=== PATIENT | male | born 1990 | race Caucasian/White ===

== ENCOUNTER 2016-07-30 01:23 | Emergency (ER) | payer OTHER ==
[2016-07-30 01:57] VITALS: TEMP 98.4; BMI 25.1
--- NOTE | 2016-07-30 03:32 | PDOC ---
History of Present Illness - General Chief Complaint: Palpitations Stated Complaint: HEART RACING Time Seen by Provider: 07/30/16 03:17 History Source: Patient Exam Limitations: No Limitations - History of Present Illness Presenting Symptoms: Chest Pain Timing/Duration: reports: intermittent (x4d) Past History - Travel Traveled outside of the country in the last 30 days: No Close contact w/someone who was outside of country & ill: No - Past Medical History Allergies/Adverse Reactions: Allergies Allergy/AdvReac Type Severity Reaction Status Date / Time No Known Allergies Allergy Verified 10/19/15 21:24 Home Medications: Ambulatory Orders NK [No Known Home Medication] 10/19/15 - Psycho/Social/Smoking Cessation Hx Anxiety: No Suicidal Ideation: No Smoking Status: Yes Smoking History: Current every day smoker Have you smoked in the past 12 months: Yes Number of Cigarettes Smoked Daily: 10 Information on smoking cessation initiated: No 'Breaking Loose' booklet given: 10/19/15 Hx Alcohol Use: Yes (SOCIAL) Drug/Substance Use Hx: No Substance Use Type: Alcohol Review of Systems - Review of Systems Able to Perform ROS?: Yes Comments:: 07/30/16 03:31 CONSTITUTIONAL: Absent: fever, chills, diaphoresis, generalized weakness, malaise, loss of appetite HEENT: Absent: rhinorrhea, nasal congestion, throat pain, throat swelling, difficulty swallowing, mouth swelling, ear pain, eye pain, visual Changes CARDIOVASCULAR: +CP Absent: loss of consciousness, palpitations, irregular heart rate, peripheral edema RESPIRATORY: Absent: cough, shortness of breath, dyspnea with exertion, orthopnea, wheezing, stridor, hemoptysis GASTROINTESTINAL: Absent: abdominal pain, abdominal distension, nausea, vomiting, diarrhea, constipation, melena, hematochezia GENITOURINARY: Absent: dysuria, frequency, urgency, hesitancy, hematuria, flank pain, genital pain MUSCULOSKELETAL: Absent: myalgia, arthralgia, joint swelling SKIN: Absent: rash, itching, pallor HEMATOLOGIC/IMMUNOLOGIC: Absent: easy bleeding, easy bruising, lymphadenopathy, frequent infections ENDOCRINE: Absent: unexplained weight gain, unexplained weight loss, heat intolerance, cold intolerance NEUROLOGIC: Absent: headache, focal weakness or paresthesias, dizziness, unsteady gait, seizure, mental status changes, bladder or bowel incontinence PSYCHIATRIC: Absent: anxiety, depression, suicidal or homicidal ideation, hallucinations. Is the patient limited [place] proficient: No *Physical Exam - Vital Signs Last Vital Signs Temp Pulse Resp BP Pulse Ox 98.4 F 92 H 22 148/80 99 07/30/16 01:53 07/30/16 01:53 07/30/16 01:53 07/30/16 01:53 07/30/16 01:53 - Physical Exam Comments: 07/30/16 03:32 GENERAL: Well developed, well nourished. Awake and alert. No acute distress. HEENT: Normocephalic, atraumatic. PERRLA, EOMI. No conjunctival pallor. Sclera are non- icteric. Moist mucous membranes. Oropharynx is clear. NECK: Supple. Full ROM. No JVD. Carotid pulses 2+ and symmetric, without bruits. No thyromegaly. No lymphadenopathy. CARDIOVASCULAR: Regular rate and rhythm. No murmurs, rubs, or gallops. Distal pulses are 2+ and symmetric. PULMONARY: No evidence of respiratory distress. Lungs clear to auscultation bilaterally. No wheezing, rales or rhonchi. ABDOMINAL: Soft. Non-tender. Non-distended. No rebound or guarding. No organomegaly. Normoactive bowel sounds. MUSCULOSKELETAL Normal range of motion at all joints. No bony deformities or tenderness. No CVA tenderness. EXTREMITIES: No cyanosis. No clubbing. No edema. No calf tenderness. SKIN: Warm and dry. Normal capillary refill. No rashes. No jaundice. NEUROLOGICAL: Alert, awake, appropriate. Cranial nerves 2-12 intact. No deficits to light touch and temperature in face, upper extremities and lower extremities. No motor deficits in the in face, upper extremities and lower extremities. Normoreflexic in the upper and lower extremities. Normal speech. Toes are down- going bilaterally. Gait is normal without ataxia. PSYCHIATRIC: Cooperative. Good eye contact. Appropriate mood and affect. Heart Score/ECG Review - History History: Slightly suspicious - Electrocardiogram EKG: Normal - Age Age: >/= 65 - Risk Factors Based on the list above the patient has:: No risk factors known - Troponin Troponin: </= normal limit - Score Heart Score - Total: 2 ED Treatment Course - LABORATORY CBC & Chemistry Diagram: 07/30/16 03:45 07/30/16 03:45 - ADDITIONAL ORDERS Additional order review: Laboratory Results 07/30/16 07/30/16 03:45 03:45 Sodium 141 Potassium 4.0 Chloride 104 Carbon Dioxide 25 Anion Gap 12 BUN 16 Creatinine 1.1 Creat Clearance w eGFR > 60 Random Glucose 110 H Calcium 8.8 Total Bilirubin 0.3 AST 22 ALT 38 Alkaline Phosphatase 58 Creatine Kinase 108 Troponin I < 0.02 Total Protein 7.1 Albumin 4.1 07/30/16 03:45 RBC 4.86 MCV 88.9 MCHC 34.4 RDW 12.9 MPV 7.3 L Neutrophils % 61.8 Lymphocytes % 27.9 Monocytes % 7.9 Eosinophils % 1.7 Basophils % 0.7 - RADIOLOGY Radiology Studies Ordered: Category Date Time Status CHEST PA & LAT [RAD] Stat Radiology 07/30/16 03:33 Taken Radiograph Interpretation: 07/30/16 06:09 CXR 2v NAD Progress Note - Progress Note Progress Note: 26-year-old male presents to the emergency department complaining of nonradiating, right sided chest pain without nausea/vomiting, fever/chills, diarrhea, headaches, dizziness, lightheadedness, neck pains, shortness of breath , abdominal pains, urinary symptoms, Lacho numbness or tingling sensation. Patient states the pain is alleviated with movement and exacerbated when laying supine. *DC/Admit/Observation/Transfer Diagnosis at time of Disposition: Chest pain Qualifiers: Chest pain type: other chest pain Qualified Code(s): R07.89 - Other chest pain - Discharge Dispostion Disposition: HOME Condition at time of disposition: Stable Admit: No - Referrals Referrals: Patel Banks MD [Staff Physician] - - Patient Instructions Printed Discharge Instructions: DI for Atypical Chest Pain Additional Instructions: Return back to the emergency department for persistent/worsening or severe symptoms
[2016-07-30] MEDS ORDERED: SODIUM CHLORIDE 1,000 ML IV SCH (03:45)
[2016-07-30 03:51] LABS: BASOPHIL 0.7 % (0-2.0); EOSINOPHIL 1.7 % (0-4.5); MCH 30.6 pg (25.7-33.7); MCHC 34.4 g/dl (32.0-35.9); MEAN CELL VOLUME 88.9 fl (80-96); MEAN PLT VOLUME 7.3 fl (7.5-11.1); NEUTROPHILS 61.8 % (42.8-82.8); PLATELET COUNT 245 K/MM3 (134-434); RDW 12.9 % (11.9-15.9); WHITE BLOOD COUNT 9.4 K/mm3 (4.0-10.0)
[2016-07-30 04:17] LABS: ALBUMIN 4.1 g/dl (3.4-5.0); ALK PHOS 58 U/L (45-117); ANION GAP 12 (8-16); BILIRUBIN,TOTAL 0.3 mg/dL (0.2-1.0); CALCIUM 8.8 mg/dL (8.5-10.1); CO2 25 mmol/L (21-32); COCKROFT - GAULT 117.52; CREATININE 1.1 mg/dL (0.7-1.3); GLUCOSE,RANDOM 110 mg/dL (74-106); SGPT/ALT 38 U/L (12-78); TOT PROT 7.1 g/dl (6.4-8.2)
[2016-07-30 04:19] LABS: SGOT/AST 22 U/L (15-37); TROPONIN I < 0.02 ng/ml (0.00-0.05)
--- NOTE | 2016-07-30 04:37 | PDOC ---
*Physical Exam - Vital Signs Last Vital Signs Temp Pulse Resp BP Pulse Ox 98.4 F 92 H 22 148/80 99 07/30/16 01:53 07/30/16 01:53 07/30/16 01:53 07/30/16 01:53 07/30/16 01:53 ED Treatment Course - LABORATORY CBC & Chemistry Diagram: 07/30/16 03:45 07/30/16 03:45 - ADDITIONAL ORDERS Additional order review: Laboratory Results 07/30/16 07/30/16 03:45 03:45 Sodium 141 Potassium 4.0 Chloride 104 Carbon Dioxide 25 Anion Gap 12 BUN 16 Creatinine 1.1 Creat Clearance w eGFR > 60 Random Glucose 110 H Calcium 8.8 Total Bilirubin 0.3 AST 22 ALT 38 Alkaline Phosphatase 58 Creatine Kinase 108 Troponin I < 0.02 Total Protein 7.1 Albumin 4.1 07/30/16 03:45 RBC 4.86 MCV 88.9 MCHC 34.4 RDW 12.9 MPV 7.3 L Neutrophils % 61.8 Lymphocytes % 27.9 Monocytes % 7.9 Eosinophils % 1.7 Basophils % 0.7 Medical Decision Making - Medical Decision Making 07/30/16 04:37 agree with care from MARLENI Ibarra *DC/Admit/Observation/Transfer Diagnosis at time of Disposition: Chest pain - Discharge Dispostion Disposition: HOME Condition at time of disposition: Stable - Referrals Referrals: Patel Banks MD [Staff Physician] - - Patient Instructions Printed Discharge Instructions: DI for Atypical Chest Pain Additional Instructions: Return back to the emergency department for persistent/worsening or severe symptoms
[2016-07-30 06:15] VITALS: BP 124/80; PULSE 80
--- NOTE | 2016-07-30 13:36 | EKG ---
Test Reason : Blood Pressure : / mmHG Vent. Rate : 085 BPM Atrial Rate : 085 BPM P-R Int : 160 ms QRS Dur : 086 ms QT Int : 354 ms P-R-T Axes : 028 076 040 degrees QTc Int : 421 ms NORMAL SINUS RHYTHM NORMAL ECG WHEN COMPARED WITH ECG OF 27-MAR-2010 19:43, NO SIGNIFICANT CHANGE WAS FOUND Confirmed by JAK GRAF MD ([id number]) on 07/30/2016 1:36:01 PM Referred By: Confirmed By:JAK GRAF MD
== END 2016-07-30 06:15 | disposition home or self-care (01) ==
LOC: JER 01:23
PROC: 3E0337Z Introduction of Electrolytic and Water Balance Substance into Peripheral Vein, Percutaneous Approach (ICD-10-PCS; principal; 2016-07-30)
DX: R07.89 Other chest pain (principal); F17.210 Nicotine dependence, cigarettes, uncomplicated
CPT/HCPCS: 36415; 71020-TC; 80053; 82550; 84484; 85025; 93005; 93010; 96360; 96361; 99283-25

== ENCOUNTER 2017-03-23 17:48 | Emergency (ER) | payer OTHER ==
[2017-03-23 17:59] VITALS: BP 142/80; PULSE 94; TEMP 99; BMI 31.4
--- NOTE | 2017-03-23 18:42 | PDOC ---
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 Timing/Duration: constant Severity: mild Associated Symptoms: reports: cough, fever/chills, headaches Past History - Past Medical History Allergies/Adverse Reactions: Allergies Allergy/AdvReac Type Severity Reaction Status Date / Time No Known Allergies Allergy Verified 03/23/17 17:59 Home Medications: Ambulatory Orders NK [No Known Home Medication] 10/19/15 COPD: No Other medical history: PERTUSSIS - Suicide/Smoking/Psychosocial Hx Smoking Status: Yes Smoking History: Never smoked Have you smoked in the past 12 months: Yes Number of Cigarettes Smoked Daily: 10 'Breaking Loose' booklet given: 10/19/15 Hx Alcohol Use: Yes (SOCIAL) Drug/Substance Use Hx: No Substance Use Type: None Patient Lives Alone: No Lives with/in: parents Review of Systems - Review of Systems Constitutional: Yes: Fever HEENTM: Yes: Throat Pain Respiratory: Yes: Cough Cardiac (ROS): No: Symptoms Reported ABD/GI: No: Symptoms Reported : No: Symptoms Reported Musculoskeletal: Yes: Joint Pain Integumentary: No: Symptoms Reported Neurological: No: Symptoms reported Endocrine: No: Symptoms Reported Hematologic/Lymphatic: No: Symptoms Reported *Physical Exam - Vital Signs Last Vital Signs Temp Pulse Resp BP Pulse Ox 99.0 F 94 H 20 142/80 97 03/23/17 17:56 03/23/17 17:56 03/23/17 17:56 03/23/17 17:56 03/23/17 17:56 - Physical Exam General Appearance: Yes: Nourished, Appropriately Dressed. No: Apparent Distress HEENT: positive: EOMI, COCO, Pharynx Normal (mild soft palate petechiae). negative: Pale Conjunctivae Neck: positive: Supple Respiratory/Chest: positive: Lungs Clear, Normal Breath Sounds. negative: Respiratory Distress, Accessory Muscle Use Cardiovascular: positive: Regular Rhythm, Regular Rate. negative: Murmur Gastrointestinal/Abdominal: positive: Soft (sinus rhythm). negative: Tenderness Integumentary: positive: Normal Color, Warm, Moist Neurologic: positive: Motor Strength 5/5 (ambulatory) Medical Decision Making - Medical Decision Making 03/23/17 18:42 Patient with URI symptoms. Patient exhibited mild petechiae to the soft palate. Patient had rapid strep sent. 03/23/17 19:08 Rapid strep negative. Patient sent home with supportive care instructions such as taking Motrin or Tylenol for discomfort eating soft foods and Drink plenty of fluids. *DC/Admit/Observation/Transfer Diagnosis at time of Disposition: Sore throat, Cough - Discharge Dispostion Disposition: HOME Condition at time of disposition: Good - Referrals Referrals: Nedra Ferris [Primary Care Provider] - - Patient Instructions Printed Discharge Instructions: DI for Cough -- Adult Additional Instructions: At this time I recommend taking Motrin 400 mg every 6-8 hours for adequate discomfort control. I also do recommend taking plenty of fluids and eating soft foods. If symptoms worsen over the next few days please return to the ED. otherwise follow-up with her primary care physician. - Post Discharge Activity
--- NOTE | 2017-03-26 15:40 | PDOC ---
Rapid Medical Evaluation Chief Complaint: Sore Throat Time Seen by Provider: 03/23/17 18:29 Medical Evaluation: Allergies Allergy/AdvReac Type Severity Reaction Status Date / Time No Known Allergies Allergy Verified 03/23/17 17:59 Vital Signs Temp Pulse Resp BP Pulse Ox 99.0 F 94 H 20 142/80 97 03/23/17 17:56 03/23/17 17:56 03/23/17 17:56 03/23/17 17:56 03/23/17 17:56 Discharge Disposition - Diagnosis Sore throat, Cough - Discharge Dispostion Disposition: HOME Condition at time of disposition: Good Last Admission D/C Date: 03/28/10 - Referrals Referrals: Nedra Ferris [Primary Care Provider] - - Patient Instructions Printed Discharge Instructions: DI for Cough -- Adult Additional Instructions: At this time I recommend taking Motrin 400 mg every 6-8 hours for adequate discomfort control. I also do recommend taking plenty of fluids and eating soft foods. If symptoms worsen over the next few days please return to the ED. otherwise follow-up with her primary care physician. - Post Discharge Activity
--- NOTE | 2017-03-26 17:21 | PDOC ---
Patient Follow-up (Call Back) - Post ED Follow - Up Condition at time of discharge: Good Disposition at time of original discharge: HOME Reason for Call Back: Abnwl. Microbiology (Attempted to call patient at [phone] which is apparently the wrong number. I then called the father's number at [phone] which was repeatedly busy. Will attempt tomorrow.)
== END 2017-03-23 19:11 | disposition home or self-care (01) ==
LOC: JERFT 17:48
DX: J02.9 Acute pharyngitis, unspecified (principal); R51 Headache
CPT/HCPCS: 87070; 87077; 87430; 99281-25

== ENCOUNTER 2017-07-15 21:38 | Emergency (ER) | payer SELFPAY ==
[2017-07-15 22:07] VITALS: BP 145/83; PULSE 86; TEMP 98.6; BMI 30.7
--- NOTE | 2017-07-15 22:12 | PDOC ---
History of Present Illness - General Chief Complaint: Pain, Acute Stated Complaint: SWOLLEN LYMPH NODES UNDER BOTH ARMS Time Seen by Provider: 07/15/17 21:43 History Source: Patient - History of Present Illness Initial Comments: 07/16/17 00:26 27M with no sig PMHx p/w cc of "swollen lymph nodes" in his bilateral axillae, occasionally neck and occasionally groin. Has noticed sxs for past 2 months, waxing and waning. Denies fever/chills, no night sweats, no weight loss. Did have unprotected sex approx 3 weeks ago which he is concerned about, would like to have HIV and syphillis test. Past History - Travel Traveled outside of the country in the last 30 days: No Close contact w/someone who was outside of country & ill: No - Past Medical History Allergies/Adverse Reactions: Allergies Allergy/AdvReac Type Severity Reaction Status Date / Time No Known Allergies Allergy Verified 07/15/17 21:41 Home Medications: Ambulatory Orders NK [No Known Home Medication] 10/19/15 COPD: No Other medical history: DENIES - Suicide/Smoking/Psychosocial Hx Smoking Status: Yes Smoking History: Never smoked Have you smoked in the past 12 months: No Number of Cigarettes Smoked Daily: 10 Information on smoking cessation initiated: No 'Breaking Loose' booklet given: 10/19/15 Hx Alcohol Use: No Drug/Substance Use Hx: No Substance Use Type: None Review of Systems - Review of Systems Able to Perform ROS?: No Constitutional: No: Chills, Fever, Malaise, Night Sweats, Weakness HEENTM: No: Blurred Vision, Recent change in vision, Double Vision Respiratory: No: Cough, Shortness of Breath, Wheezing, Productive cough Cardiac (ROS): Yes: See HPI. No: Chest Pain ABD/GI: No: Nausea, Rectal Bleeding, Vomiting Musculoskeletal: No: Back Pain, Muscle Pain, Muscle Weakness Integumentary: No: Bruising Hematologic/Lymphatic: Yes: Lymph Node Abnormalities, Swollen Glands *Physical Exam - Vital Signs Last Vital Signs Temp Pulse Resp BP Pulse Ox 98.6 F 86 16 145/83 99 07/15/17 22:03 07/15/17 22:03 07/15/17 22:03 07/15/17 22:03 07/15/17 22:03 - Physical Exam General Appearance: Yes: Nourished, Appropriately Dressed. No: Apparent Distress HEENT: positive: EOMI, Normal ENT Inspection, Normal Voice, Symmetrical. negative: Pharyngeal Erythema Neck: negative: Lymphadenopathy (R), Lymphadenopathy (L) Respiratory/Chest: positive: Lungs Clear, Normal Breath Sounds. negative: Chest Tender Cardiovascular: positive: Regular Rhythm, Regular Rate Lymphatic: positive: Other (+lymphadenopathy bilateral axillae (L>R)) Musculoskeletal: positive: Normal Inspection Extremity: positive: Normal Capillary Refill, Normal Inspection Integumentary: positive: Normal Color. 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 CBC normal, no lymphocytosis. No B symptoms, asymptomatic at current time. - labs (CBC, chem, RPR, HIV) - if labs wnl, dc home with PMD f/u *DC/Admit/Observation/Transfer Diagnosis at time of Disposition: Lymphadenopathy - Discharge Dispostion Disposition: HOME Condition at time of disposition: Stable - Referrals - Patient Instructions Printed Discharge Instructions: DI for Lymphadenopathy Additional Instructions: You were seen in the ER for concern about swollen lymph nodes. You had some basic blood work including a complete blood count which were all ok. It's important that you follow up with your primary care doctor and express your concern about the lymph nodes, you may need further testing. - Post Discharge Activity
[2017-07-15 22:44] LABS: BASO % 0.9 % (0-2.0); EOS % 1.3 % (0-4.5); HEMATOCRIT 44.1 % (35.4-49); HEMOGLOBIN 15.2 GM/dl (11.7-16.9); LYMPH % 24.4 % (8-40); MCH 30.1 pg (25.7-33.7); MCHC 34.5 g/dl (32.0-35.9); MEAN CELL VOLUME 87.3 fl (80-96); MEAN PLT VOLUME 7.2 fl (7.5-11.1); MONO % 8.7 % (3.8-10.2); NEUT % 64.7 % (42.8-82.8); PLATELET COUNT 315 K/MM3 (134-434); RBC 5.05 M/mm3 (4.00-5.60); RDW 12.3 % (11.9-15.9)
[2017-07-15 23:03] LABS: ALBUMIN 4.7 g/dl (3.5-5.0); ALK PHOS 60 U/L (32-92); ANION GAP 5 (8-16); BLOOD UREA NITROGEN 13 mg/dl (7-18); CALCIUM 9.4 mg/dl (8.4-10.2); CHLORIDE 99 mmol/L (98-107); CO2 30 mmol/L (22-28); CREATININE 0.8 mg/dl (0.6-1.3); GLUCOSE,RANDOM 78 mg/dl (74-106); POTASSIUM 3.8 mmol/L (3.5-5.1); SGOT/AST 27 U/L (10-42); SGPT/ALT 30 U/L (10-40); SODIUM 134 mmol/L (136-145); TOT PROT 7.2 g/dl (6.4-8.3)
[2017-07-15 23:22] LABS: BILIRUBIN,TOTAL < 0.5 mg/dl (0.2-1.0)
== END 2017-07-16 00:34 | disposition home or self-care (01) ==
LOC: FER 21:38
DX: R59.1 Generalized enlarged lymph nodes (principal); Z87.891 Personal history of nicotine dependence
CPT/HCPCS: 36415; 80053; 85025; 86593; 87389; 99281-25

== ENCOUNTER 2022-06-02 21:00 | Emergency (ER) | payer BC ==
[2022-06-02 21:06] VITALS: BP 153/82; PULSE 102; RESP 18; TEMP 97.8; BMI 33.5
== END 2022-06-02 23:11 | disposition home or self-care (01) ==
LOC: JERFT 21:00
DX: H00.015 Hordeolum externum left lower eyelid (principal)
CPT/HCPCS: 99281-25

== ENCOUNTER 2022-12-17 17:33 | Emergency (ER) | payer BC ==
[2022-12-17 17:41] VITALS: BP 124/80; PULSE 75; RESP 16; TEMP 98.5; BMI 33.5
[2022-12-17] MEDS ORDERED: ACETAMINOPHEN 1000 MG/100 ML BAG IVPB ONE (18:27)
[2022-12-17] MEDS ORDERED: ACETAMINOPHEN INJECTION 100 ML IVPB ONE (18:33)
[2022-12-17 19:07] LABS: BASO % 0.5 % (0-2.0); EOS % 1.1 % (0-4.5); HEMATOCRIT 46.1 % (35.4-49); HEMOGLOBIN 15.2 GM/dL (11.7-16.9); LYMPH % 25.6 % (8-40); MCH 29.6 pg (25.7-33.7); MEAN CELL VOLUME 89.6 fl (80-96); MEAN PLT VOLUME 7.4 fl (7.5-11.1); MONO % 7.6 % (3.8-10.2); NEUT % 65.2 % (42.8-82.8); PLATELET COUNT 236 10^3/uL (134-434); RBC 5.14 M/mm3 (4.00-5.60); RDW 12.8 % (11.9-15.9)
[2022-12-17 19:34] LABS: POTASSIUM 4.5 mmol/L (3.5-5.1)
[2022-12-17 19:36] LABS: CALCIUM 9.2 mg/dL (8.5-10.1)
[2022-12-17 19:37] LABS: ALBUMIN 4.2 g/dl (3.4-5.0); BLOOD UREA NITROGEN 12.3 mg/dL (7-18)
[2022-12-17 19:40] LABS: CREATININE 0.9 mg/dL (0.55-1.3)
[2022-12-17 19:42] LABS: BILIRUBIN,TOTAL 0.3 mg/dL (0.2-1); TOT PROT 7.4 g/dl (6.4-8.2)
== END 2022-12-17 20:03 | disposition home or self-care (01) ==
LOC: JER 17:33
PROC: 3E033NZ Introduction of Analgesics, Hypnotics, Sedatives into Peripheral Vein, Percutaneous Approach (ICD-10-PCS; principal; 2022-12-17)
DX: R07.9 Chest pain, unspecified (principal); M79.602 Pain in left arm; R20.2 Paresthesia of skin
CPT/HCPCS: 36415; 71046-TC-FY; 80053; 84484; 85025; 93005; 93010; 99285-25